=== PATIENT | female | born 1945 | race Caucasian/White ===

== ENCOUNTER 2023-05-12 15:25 | Emergency (ER) | payer MEDICARE, OTHER ==
[~2023-05-12] VITALS: Ht 162.6 cm; Wt 94.2 kg
[~2023-05-12 15:25] MED LIST: AMLO1TAB22 PO; ASPI1TAB20 PO; ATEN100T PO; FENO160T PO; LEVO-140 OR; METF-371 PO
[2023-05-12 16:19] LABS: Basophils # (auto) 0 10 ^3/uL (0-0.2); Eosinophils # (auto) 0.1 10 ^3/uL (0-0.8); Hematocrit 26.9 % (36.0-46.0); Hemoglobin 8.4 g/dL (12.2-16.2); Mean Corpuscular Hgb Conc. 31.1 g/dL (32.0-36.0); Nucleated Red Blood Cells % 0.1 %
[2023-05-12 16:20] LABS: Basophils % (auto) 0.3 % (0.0-2.0); Eosinophils % (auto) 1.4 % (0.0-7.0); Lymphocytes # (auto) 1.4 10 ^3/uL (0.4-5.4); Lymphocytes % (auto) 22.3 % (10.0-50.0); Mean Corpuscular Hemoglobin 24.6 pg (28.0-32.0); Mean Corpuscular Volume 79.1 fL (80.0-100.0); Monocytes # (auto) 0.5 10 ^3/uL (0-1.3); Monocytes % (auto) 7.6 % (0.0-12.0); Neutrophils # (auto) 4.2 10 ^3/uL (1.6-8.6); Neutrophils % (auto) 68.4 % (37.0-80.0); Red Cell Distribution Width 17.8 % (11.8-14.3); White Blood Cell 6.1 10^3/uL (4.4-10.8)
[2023-05-12 16:39] LABS: Albumin 3.6 g/dL (3.4-5.0); BUN/Creatinine Ratio 16.9 (10.0-20.0); Calcium 8.7 mg/dL (8.5-10.1); Potassium 3.3 mmol/L (3.5-5.1)
[2023-05-12 16:41] LABS: Bilirubin, Total 1.5 mg/dL (0.2-1.0); Total Protein 7.2 g/dL (6.4-8.2)
[2023-05-12 19:57] LABS: INR 1.12 (0.9-1.15); Partial Thromboplastin Time 28.3 sec (24.6-33.4)
[2023-05-12] MEDS ORDERED: IOHEXOL 350 MG/ML 100ML IJ ONE (20:32)
[2023-05-12] MEDS ORDERED: FURO1TAB31 PO (22:44)
[2023-05-12 23:30] VITALS: BP 148/65
== END 2023-05-12 23:34 | disposition home or self-care (01) ==
LOC: ER 15:25
DX: I50.9 Heart failure, unspecified (principal); R60.0 Localized edema; M19.90 Unspecified osteoarthritis, unspecified site; E11.9 Type 2 diabetes mellitus without complications; I10 Essential (primary) hypertension
CPT/HCPCS: 36415; 71275; 80053; 85025; 85379; 85610; 85730; 93971; 99285; Q9967